=== PATIENT | male | born 1990 | race African-American/Black ===

== ENCOUNTER 2017-12-06 15:07 | Emergency (ER) | payer OTHER ==
[~2017-12-06 15:07] MED LIST: AMLO5TAB2 PO
[2017-12-06 15:14] VITALS: BP 125/58; PULSE 109; RESP 20; TEMP 98.6; O2SAT 97
--- NOTE | 2017-12-06 15:42 | RADRPT ---
EXAM DATE/TIME: 12/06/2017 15:31 [place] COMPARISON: No previous studies available for comparison. INDICATIONS : Right ankle pain post fall today. MEDICAL HISTORY : None. SURGICAL HISTORY : None. ENCOUNTER: Initial ACUITY: 1 day PAIN SCORE: 6/10 LOCATION: Right ankle. FINDINGS: There is fairly diffuse soft tissue swelling about the ankle mortise. The osseous structures are beto sly intact. No retained foreign body is seen. The bony mineralization is within normal limits. CONCLUSION: 1. Diffuse soft tissue swelling. No acute bony fracture identified. Domenico Young MD on December 06, 2017 at 15:40 Board Certified Radiologist. This report was verified electronically.
[2017-12-06] MEDS ORDERED: IBUP-232 PO (18:51)
[2017-12-06] MEDS ORDERED: TRAM50 PO (18:51)
--- NOTE | 2017-12-06 18:51 | PD ---
HPI Chief Complaint: Injury Time Seen by Provider: 18:44 Travel History International Travel<30 days: No Contact w/Intl Traveler<30days: No Traveled to known affect area: No History of Present Illness HPI 27-year-old male complains of right ankle pain. Patient states that he fell and twisted the right ankle today. Patient states that the pain is sharp pain localized to the right ankle. Patient denies any pain radiation. Patient states that the pain is worse with weightbearing. On a scale of 1-10 the pain is a 9. PFSH Past Medical History Medical History: Denies Significant Hx Diminished Hearing: No Tetanus Vaccination: < 5 Years ?: Not Past Surgical History Surgical History: No Previous Surgery Social History Alcohol Use: No Tobacco Use: No Substance Use: No Allergies-Medications (Allergen,Severity, Reaction): Coded Allergies: No Known Allergies (Unverified Adverse Reaction, Unknown, 10/10/17) Reported Meds & Prescriptions Reported Meds & Active Scripts Active No Active Prescriptions or Reported Medications Review of Systems General / Constitutional: No: Fever Eyes: No: Visual changes HENT: No: Headaches Cardiovascular: No: Chest Pain or Discomfort Respiratory: No: Shortness of Breath Gastrointestinal: No: Abdominal Pain Genitourinary: No: Dysuria Musculoskeletal: Positive: Pain Skin: No Rash Neurologic: No: Weakness Psychiatric: No: Depression Endocrine: No: Polydipsia Hematologic/Lymphatic: No: Easy Bruising Physical Exam Narrative GENERAL: Well-nourished, well-developed patient. SKIN: Focused skin assessment warm/dry. HEAD: Normocephalic. EYES: No scleral icterus. No injection or drainage. NECK: Supple, trachea midline. No JVD or lymphadenopathy. CARDIOVASCULAR: Regular rate and rhythm without murmurs, gallops, or rubs. RESPIRATORY: Breath sounds equal bilaterally. No accessory muscle use. GASTROINTESTINAL: Abdomen soft, non-tender, nondistended. MUSCULOSKELETAL: No cyanosis, or edema. BACK: Nontender without obvious deformity. No CVA tenderness. Patient has soft tissue swelling tenderness diffuse over the right ankle joint. Full range of motion of the toes. Data Data Last Documented VS Vital Signs Date Time Temp Pulse Resp B/P (MAP) Pulse Ox O2 Delivery O2 Flow Rate FiO2 12/06/17 15:14 98.6 109 20 125/58 (80) 97 Orders Orders Ankle, Complete ([id number]) (12/06/17 ) MDM Medical Decision Making Medical Screen Exam Complete: Yes Emergency Medical Condition: Yes Interpretation(s) Last Impressions Ankle X-Ray 12/06/17 0000 Signed Impressions: Service Date/Time: Wednesday, December 06, 2017 15:31 - CONCLUSION: 1. Diffuse soft tissue swelling. No acute bony fracture identified. Domenico Young MD Differential Diagnosis Differential diagnosis including sprain, fracture, dislocation. Narrative Course 27-year-old male with right ankle injury. Diagnosis Primary Impression: Right ankle sprain Qualified Codes: S93.401A - Sprain of unspecified ligament of right ankle, initial encounter Patient Instructions: General Instructions Additional Instructions: Take medication as directed for pain. Ice elevation. Follow-up with orthopedist. Med/Other Pt SpecificInfo: Prescription(s) given Scripts Tramadol (Ultram) 50 Mg Tab 50 MG PO Q6H Y for PAIN, #12 TAB 0 Refills Prov: Nabil Willard MD 12/06/17 Ibuprofen (Ibuprofen) 600 Mg Tab 600 MG PO TID for Pain, #60 TAB 0 Refills Prov: Nabil Willard MD 12/06/17 Disposition: 01 DISCHARGE HOME Condition: Stable Nabil Willard MD Dec 06, 2017 18:51
[2017-12-06] MEDS ORDERED: IBUPROFEN 600 MG TAB PO ONE (20:00)
== END 2017-12-06 20:00 | disposition home or self-care (01) ==
LOC: NEPD 15:07
DX: S93.401A Sprain of unspecified ligament of right ankle, initial encounter (principal); W19.XXXA Unspecified fall, initial encounter
CPT/HCPCS: 29515; 73610; 99283; E0113